=== PATIENT | male | born 1960 | race Caucasian/White ===

== ENCOUNTER 2016-11-29 14:47 | Emergency (ER) | payer BC ==
[2016-11-29 16:29] LABS: Basophils % (Auto) 0.6 % (0.0-1.8); Eosinophils % (Auto) 1.7 % (0.0-4.3); Hematocrit 42.6 % (35.5-45.6); Hemoglobin 14.4 gm/dl (11.8-15.2); Mean Corpuscular HGB Conc 34 % (32-34); Mean Corpuscular Hemoglobin 30 pg (28-32); Mean Corpuscular Volume 88 fl (84-94); Platelet Count 139 K/mm3 (140-440); Red Blood Count 4.85 M/mm3 (3.65-5.03); Red Cell Distribution Width 13.7 % (13.2-15.2); White Blood Count 7.2 K/mm3 (4.5-11.0)
[2016-11-29 16:44] LABS: Alanine Aminotransferase 25 units/L (7-56); Albumin 4.3 g/dL (3.9-5); Albumin/Globulin Ratio 1.5 %; Alkaline Phosphatase 87 units/L (35-129); Anion Gap 20 mmol/L; Bilirubin,Total 0.2 mg/dL (0.1-1.2); Blood Urea Nitrogen 14 mg/dL (9-20); Calcium 9.3 mg/dL (8.4-10.2); Carbon Dioxide 25 mmol/L (22-30); Chloride 97.7 mmol/L (98-107); Glucose 143 mg/dL (75-100); Lipase 46 units/L (13-60); Potassium 4.2 mmol/L (3.6-5.0); Sodium 138 mmol/L (137-145); Total Protein 7.1 g/dL (6.3-8.2)
[2016-11-29 16:52] LABS: Bilirubin,Urine NEG (Negative); Blood,Urine NEG (Negative); Ketones,Urine NEG (Negative); Leukocyte Esterase,Urine NEG (Negative); Nitrite,Urine NEG (Negative); Protein,Urine <15 mg/dL mg/dL (Negative); Urobilinogen,Urine < 2.0 mg/dL (<2.0); WBC,Urine < 1.0 /HPF (0.0-6.0)
--- NOTE | 2016-11-30 01:08 | Emergency Department Report ---
ED Abdominal Pain HPI - General Chief Complaint: Abdominal Pain Stated Complaint: ABD PAIN Time Seen by Provider: 11/30/16 00:51 Source: patient Mode of arrival: Ambulatory Limitations: No Limitations - History of Present Illness Initial Comments: Patient reports recent diagnosis of genital herpes. He was placed on acyclovir 800 mg one tablet per day 10 days. He indicates for the past 5 days he's felt increased jitteriness. He also reports some lightheadedness and feels others funny sensation in the tip of his tongue. He also reports some intermittent abdominal pains that are somewhat migratory. He denies any nausea vomiting or diarrhea. He denies any fever. He reports feeling new change really is that he acyclovir. MD Complaint: abdominal pain -: Gradual, days(s) (5) Location: RUQ, LLQ Radiation: none Severity: mild Quality: dull Consistency: intermittent Improves With: nothing Worsens With: other (lying down) Context: recent antibiotic use Associated Symptoms: other (weakness, fatigue, paresthesias ) - Related Data Home Medications Medication Instructions Recorded Confirmed Last Taken Insulin Aspart Protam & Aspart 25 unit SQ BID 03/21/16 03/21/16 Unknown [NovoLOG Mix 70-30 Flexpen] Rosuvastatin (Nf) [Crestor] 20 mg PO QHS 03/21/16 03/21/16 Unknown Allergies Allergy/AdvReac Type Severity Reaction Status Date / Time No Known Allergies Allergy Verified 11/29/16 15:47 ED Review of Systems ROS: Stated complaint: ABD PAIN Other details as noted in HPI Constitutional: weakness. denies: chills, fever Eyes: denies: eye pain, eye discharge, vision change ENT: denies: ear pain, throat pain Respiratory: denies: cough, shortness of breath, wheezing Cardiovascular: denies: chest pain, palpitations Endocrine: no symptoms reported Gastrointestinal: abdominal pain. denies: nausea, diarrhea Genitourinary: denies: urgency, dysuria Musculoskeletal: denies: back pain, joint swelling, arthralgia Skin: denies: rash, lesions Neurological: paresthesias. denies: headache, weakness Psychiatric: denies: anxiety, depression Hematological/Lymphatic: denies: easy bleeding, easy bruising ED Past Medical Hx - Past Medical History Hx Hypertension: Yes (x 20 years) Hx Congestive Heart Failure: No Hx Diabetes: Yes Hx Asthma: No Hx COPD: No Additional medical history: HERPES. HIGH CHOLESTEROL - Surgical History Past Surgical History?: No - Social History Smoking Status: Never Smoker - Medications Home Medications: Home Medications Medication Instructions Recorded Confirmed Last Taken Type Insulin Aspart Protam & Aspart 25 unit SQ BID 03/21/16 03/21/16 Unknown History [NovoLOG Mix 70-30 Flexpen] Rosuvastatin (Nf) [Crestor] 20 mg PO QHS 03/21/16 03/21/16 Unknown History ED Physical Exam - General Limitations: No Limitations General appearance: alert, in no apparent distress - Head Head exam: Present: atraumatic, normocephalic - Eye Eye exam: Present: normal appearance - ENT ENT exam: Present: normal orophraynx, mucous membranes moist - Neck Neck exam: Present: normal inspection. Absent: tenderness, lymphadenopathy - Respiratory Respiratory exam: Present: normal lung sounds bilaterally. Absent: respiratory distress, rhonchi - Cardiovascular Cardiovascular Exam: Present: regular rate, normal rhythm. Absent: systolic murmur, diastolic murmur, rubs, gallop - GI/Abdominal GI/Abdominal exam: Present: soft, normal bowel sounds. Absent: distended, tenderness - Rectal Rectal exam: Present: deferred - External exam: Present: other (herpetic lesions on shaft and glans of penis ) - Extremities Exam Extremities exam: Present: normal inspection - Back Exam Back exam: Present: normal inspection - Neurological Exam Neurological exam: Present: alert, oriented X3 - Psychiatric Psychiatric exam: Present: normal affect, normal mood - Skin Skin exam: Present: warm, dry, intact, normal color. Absent: rash ED Course Vital Signs 11/29/16 11/30/16 11/30/16 15:43 00:45 01:46 Temperature 98.0 F 98.7 F Pulse Rate 76 89 Respiratory 18 14 14 Rate Blood Pressure 136/89 Blood Pressure 145/89 [Left] O2 Sat by Pulse 97 99 Oximetry - Reevaluation(s) Reevaluation #1: 11/30/16 02:18 The patient is intact neurologically for me here I did review on [facility] whether acyclovir could Cause some of his symptoms. It seems unlikely. His doses somewhat on his well for herpes simplex. I did encourage him to take 2 tablets daily for the next 3 days. I cannot rule out these medications could cause his symptoms. I do feel it is worth finishing the prescription though. The symptoms in general seem fairly mild. I did write him off work for the next couple days so he can convalesce try to get through this. He is otherwise stable here. Do not see anything cardiac related to this. His labs are unremarkable. I feel he is safe for home. ED Medical Decision Making - Lab Data Result diagrams: 11/29/16 16:12 11/29/16 16:12 Critical care attestation.: If time is entered above; I have spent that time in minutes in the direct care of this critically ill patient, excluding procedure time. ED Disposition Clinical Impression: Adverse drug reaction Genital herpes simplex Qualifiers: Herpes simplex infection site: penis Qualified Code(s): A60.01 - Herpesviral infection of penis Disposition: DISCHARGED TO HOME OR SELFCARE Is pt being admited?: No Does the pt Need Aspirin: No Condition: Stable Instructions: Genital Herpes Simplex (ED) Additional Instructions: Continue with the acyclovir. Take one more tonight. Take morning and night for the next 2 days. Eat a bland diet. Referrals: PRIMARY CARE, [Primary Care Provider] - 3-5 Days Forms: Work/School Release Form(ED) Time of Disposition: 01:08
[2016-11-30 01:33] VITALS: BP 145/89
== END 2016-11-30 01:30 | disposition home or self-care (01) ==
LOC: ED 14:47
DX: T50.905A Adverse effect of unspecified drugs, medicaments and biological substances, initial encounter (principal); A60.01 Herpesviral infection of penis; R53.83 Other fatigue; I10 Essential (primary) hypertension; E11.9 Type 2 diabetes mellitus without complications; E78.00 Pure hypercholesterolemia, unspecified; Z79.4 Long term (current) use of insulin; Y92.9 Unspecified place or not applicable
CPT/HCPCS: 36415; 80053; 81001; 83690; 84484; 85025; 93005; 93010; 99284

== ENCOUNTER 2019-07-17 00:14 | Emergency (ER) | payer SELFPAY ==
[2019-07-17] MEDS ORDERED: ASPIRIN PO ONE (00:49)
[2019-07-17 01:03] LABS: Basophils # (Auto) 0.1 K/mm3 (0.0-0.1); Basophils % (Auto) 1.4 % (0.0-1.8); Eosinophils # (Auto) 0.2 K/mm3 (0.0-0.4); Eosinophils % (Auto) 4.8 % (0.0-4.3); Hematocrit 42.4 % (35.5-45.6); Hemoglobin 14.4 gm/dl (11.8-15.2); Lymphocytes # (Auto) 1.7 K/mm3 (1.2-5.4); Lymphocytes % (Auto) 34.6 % (13.4-35.0); Mean Corpuscular HGB Conc 34 % (32-34); Mean Corpuscular Volume 88 fl (84-94); Monocytes # (Auto) 0.4 K/mm3 (0.0-0.8); Monocytes % (Auto) 8.1 % (0.0-7.3); Platelet Count 150 K/mm3 (140-440)
--- NOTE | 2019-07-17 01:15 | XRay Report ---
CHEST 1 VIEW INDICATION / CLINICAL INFORMATION: Chest Pain. COMPARISON: None available. FINDINGS: SUPPORT DEVICES: None. HEART / MEDIASTINUM: No significant abnormality. LUNGS / PLEURA: No significant pulmonary or pleural abnormality. No pneumothorax. ADDITIONAL FINDINGS: No significant additional findings. IMPRESSION: 1. No acute findings. Signer Name: Brennen Mary MD Signed: 07/17/2019 1:10 AM Workstation Name: [id number]
[2019-07-17 01:18] LABS: BUN/Creatinine Ratio 19; Blood Urea Nitrogen 13 mg/dL (9-20); Calcium 9.1 mg/dL (8.4-10.2); Hemolysis Index 8
[2019-07-17] MEDS ORDERED: CARAFATE PO ONE (01:38)
[2019-07-17] MEDS ORDERED: PEPCID PO ONE (01:38)
[2019-07-17] MEDS ORDERED: TYLENOL PO ONE (01:38)
[2019-07-17] MEDS ORDERED: NACL 0.9% 1000 ML 1,000 ML IV ONE (01:39)
--- NOTE | 2019-07-17 01:40 | Emergency Department Report ---
ED Chest Pain HPI - General Chief Complaint: Chest Pain Stated Complaint: WEAKNESS/CHEST TIGHTING Time Seen by Provider: 07/17/19 01:30 Source: patient, RN notes reviewed, old records reviewed Mode of arrival: Ambulatory Limitations: No Limitations - History of Present Illness Initial Comments: This is a pleasant 58-year-old gentleman who is not known to this provider previously. He has a history of gastritis, hypertension and high cholesterol. Patient was admitted to this hospital in 2016 for chest pain, and had a nuclear cardiac stress test which was negative for ischemic findings. The patient presents to the ER with a complaint of diffuse abdominal pain, cramping. This has been going on for a few days to a few weeks, and was initially epigastric and radiated down to the bilateral lower quadrants. Then, he says, that at 11:00 yesterday evening, he developed epigastric pain and bilateral chest pain. This pain does not radiate anywhere. There is no vomiting or diaphoresis. There is no shortness of breath. He endorses no DVT or pulmonary embolism risk factors. He endorses abdominal cramping and chills. He denies urinary symptoms. MD Complaint: chest pain, other -: Gradual, hour(s), days(s) Onset: during rest Pain Location: substernal, left chest, right chest Severity: mild Quality: aching Consistency: intermittent Improves With: nothing Worsens With: nothing Aspirin use within the Past 7 Days: (0) No - Related Data On Oral Contraceptives: No Home Medications Medication Instructions Recorded Confirmed Last Taken Insulin Aspart Protam & Aspart 25 unit SQ BID 03/21/16 03/21/16 Unknown [NovoLOG Mix 70-30 Flexpen] Rosuvastatin (Nf) [Crestor] 20 mg PO QHS 03/21/16 03/21/16 Unknown Allergies Allergy/AdvReac Type Severity Reaction Status Date / Time No Known Allergies Allergy Verified 11/29/16 15:47 Heart Score - HEART Score History: Slightly suspicious EKG: Normal Age: 45-65 Risk factors: 1-2 risk factors Troponin: < normal limit HEART Score: 2 - Critical Actions Critical Actions: 0-3 pts:0.9-1.7%risk of adverse cardiac event.Candidate for discharge ED Review of Systems ROS: Stated complaint: WEAKNESS/CHEST TIGHTING Other details as noted in HPI Constitutional: chills. denies: fever Eyes: denies: eye discharge ENT: denies: congestion Respiratory: denies: shortness of breath Cardiovascular: chest pain Gastrointestinal: abdominal pain. denies: nausea, vomiting, diarrhea Genitourinary: denies: dysuria Musculoskeletal: myalgia Skin: denies: lesions Neurological: weakness Hematological/Lymphatic: denies: easy bleeding ED Past Medical Hx - Past Medical History Previous Medical History?: Yes Hx Hypertension: Yes (x 20 years) Hx Congestive Heart Failure: No Hx Diabetes: Yes Hx Asthma: No Hx COPD: No Additional medical history: HERPES, GASTRITIS. HIGH CHOLESTEROL - Surgical History Past Surgical History?: No - Social History Smoking Status: Never Smoker Substance Use Type: None - Medications Home Medications: Home Medications Medication Instructions Recorded Confirmed Last Taken Type Insulin Aspart Protam & Aspart 25 unit SQ BID 03/21/16 03/21/16 Unknown History [NovoLOG Mix 70-30 Flexpen] Rosuvastatin (Nf) [Crestor] 20 mg PO QHS 03/21/16 03/21/16 Unknown History ED Physical Exam - General Limitations: No Limitations General appearance: alert, in no apparent distress - Head Head exam: Present: atraumatic, normocephalic - Eye Eye exam: Present: normal appearance, EOMI. Absent: nystagmus - ENT ENT exam: Present: normal exam, normal orophraynx, mucous membranes moist, normal external ear exam - Neck Neck exam: Present: normal inspection, full ROM. Absent: tenderness, menin gismus - Respiratory Respiratory exam: Present: normal lung sounds bilaterally. Absent: respiratory distress - Cardiovascular Cardiovascular Exam: Present: regular rate, normal rhythm, normal heart sounds. Absent: bradycardia, tachycardia, irregular rhythm, systolic murmur, diastolic murmur, rubs, gallop - GI/Abdominal GI/Abdominal exam: Present: soft. Absent: distended, tenderness, guarding, rebound, rigid, pulsatile mass - Rectal Rectal exam: Present: deferred - Extremities Exam Extremities exam: Present: normal inspection, full ROM, other (2+ pulses noted in the bilateral upper, lower extremities. There is no long bone tenderness. Musculoskeletal compartments are soft. The pelvis is stable.). Absent: pedal edema, joint swelling, calf tenderness - Back Exam Back exam: Present: normal inspection, full ROM. Absent: tenderness, CVA tenderness (R), CVA tenderness (L), paraspinal tenderness, vertebral tenderness - Neurological Exam Neurological exam: Present: alert, normal gait, other (there is no facial droop. The tongue is midline. Extraocular movements are intact bilaterally. Patient speaking in full complete sentences. Shoulder shrug is intact bilaterally. Hearing is grossly intact bilaterally. Visual acuity intact to finger counting and color perception at a close distance. 5/5 strength 4 extremities. Sensation intact to light touch in 4 extremities.). Absent: motor sensory deficit - Psychiatric Psychiatric exam: Present: anxious - Skin Skin exam: Present: warm, dry, intact, normal color. Absent: rash ED Course Vital Signs 07/17/19 07/17/19 07/17/19 01:46 01:47 01:49 Temperature 98.5 F Pulse Rate 60 60 Respiratory 15 15 Rate Blood Pressure 141/78 [Right] O2 Sat by Pulse 99 99 Oximetry 07/17/19 07/17/19 03:59 05:02 Temperature Pulse Rate 81 60 Respiratory 16 16 Rate Blood Pressure 134/77 119/65 [Right] O2 Sat by Pulse 98 97 Oximetry - Reevaluation(s) Reevaluation #1: 07/17/19 05:07 Multiple reassessments made. Patient appears quite comfortable. Troponin negative 3. EKG unchanged 2. Patient resting comfortably, and in no acute distress. CT scan chest negative for acute disease. CT scan abdomen pelvis negative for acute disease. Patient at low risk for major adverse cardiac event. As for this institutions protocols, his facesheet contact information has been sent out via fax to our local cardiology practice, and he will be instr ucted to closely follow-up as an outpatient. Patient is low risk for major adverse cardiac event as per heart score. GABE score - Gabe Score Age > 65: (0) No Aspirin use within the Past 7 Days: (0) No 3 or more CAD Risk Factors: (0) No 2 or more Angina events in past 24 hrs: (0) No Known CAD with more than 50% Stenosis: (0) No Elevated Cardiac Markers: (0) No ST Deviation Greater than 0.5mm: (0) No GABE Score: 0 ED Medical Decision Making - Lab Data Result diagrams: 07/17/19 00:51 07/17/19 00:51 Vital Signs 07/17/19 07/17/19 07/17/19 01:46 01:47 01:49 Temperature 98.5 F Pulse Rate 60 60 Respiratory 15 15 Rate Blood Pressure 141/78 [Right] O2 Sat by Pulse 99 99 Oximetry Lab Results 07/17/19 07/17/19 Range/Units 00:51 00:51 WBC 5.0 (4.5-11.0) K/mm3 RBC 4.80 (3.65-5.03) M/mm3 Hgb 14.4 (11.8-15.2) gm/dl Hct 42.4 (35.5-45.6) % MCV 88 (84-94) fl MCH 30 (28-32) pg MCHC 34 (32-34) % RDW 14.0 (13.2-15.2) % Plt Count 150 (140-440) K/mm3 Lymph % (Auto) 34.6 (13.4-35.0) % [place] % (Auto) 8.1 H (0.0-7.3) % Eos % (Auto) 4.8 H (0.0-4.3) % Baso % (Auto) 1.4 (0.0-1.8) % Lymph # 1.7 (1.2-5.4) K/mm3 [place] # 0.4 (0.0-0.8) K/mm3 Eos # 0.2 (0.0-0.4) K/mm3 Baso # 0.1 (0.0-0.1) K/mm3 Seg Neutrophils % 51.1 (40.0-70.0) % Seg Neutrophils # 2.5 (1.8-7.7) K/mm3 Sodium 140 (137-145) mmol/L Potassium 3.5 L (3.6-5.0) mmol/L Chloride 101.4 (98-107) mmol/L Carbon Dioxide 26 (22-30) mmol/L Anion Gap 16 mmol/L BUN 13 (9-20) mg/dL Creatinine 0.7 L (0.8-1.5) mg/dL Estimated GFR > 60 ml/min BUN/Creatinine Ratio 19 % Glucose 174 H (75-100) mg/dL Calcium 9.1 (8.4-10.2) mg/dL Troponin T < 0.010 (0.00-0.029) ng/mL - EKG Data -: EKG Interpreted by De EKG shows normal: sinus rhythm, axis, intervals, QRS complexes, ST-T waves Rate: normal - EKG Data When compared to previous EKG there are: no significant change Interpretation: no acute changes, normal EKG 07/17/19 01:58 EKG #1 shows a normal sinus rhythm, 61 beats for minute, normal axis, normal intervals, unremarkable EKG, not consistent with ST elevation myocardial infarction. EKG #2 was unchanged from prior. Both EKGs appear to be unchanged from prior EKGs from 2017 - Radiology Data Radiology results: pending, report reviewed, image reviewed X-ray of the chest is negative for acute disease - Medical Decision Making Differential diagnosis, including not limited to: Constipation, GERD, gastritis, reflux, hiatal hernia, acute coronary syndrome, pneumonia, intra-abdominal infection, renal infection, pulmonary embolism Assessment and plan: 58-year-old gentleman who endorses abdominal pain, chills, and chest pain. The patient is afebrile with reassuring vital signs. His abdomen is soft and benign. He does not have a fever and he does not have a leukocytosis. Doubt acute surgical process in the abdomen. EKG unchanged 2. Troponin negative 1. No pulmonary embolism or DVT risk factors, low risk by well's criteria. Low risk by heart score, for major adverse cardiac event. Patient has had an unremarkable nuclear stress at this hospital in the past. Doubt acute disease at this time, however, we will treat his symptoms, obtain urinalysis, repeat troponin, additional laboratory studies and d-dimer, and depending on d-dimer, obtain CT scan abdomen pelvis, plus minus chest. Critical care attestation.: If time is entered above; I have spent that time in minutes in the direct care of this critically ill patient, excluding procedure time. ED Disposition Clinical Impression: History of chest pain, History of abdominal pain Disposition: -01 TO HOME OR SELFCARE Is pt being admited?: No Does the pt Need Aspirin: No Condition: Stable Additional Instructions: Avoid consumption of Motrin, ibuprofen, Naprosyn, Aleve. Avoid consumption of heavy and spicy foods. Limits alcohol consumption. Follow-up with a cardio logist within the next 3-5 days. Patient may take [id number] Tylenol, 650 mg, by mouth, every 4-6 hours, and [id number] Pepcid, 20 mg, twice daily. Return to emergency room right away with new, worsened or different symptoms, or symptoms not present on the initial emergency room evaluation. Do not take metformin medication for the next 2 days, if patient takes this medication. Referrals: [facility] [Provider Group] - 3-5 Days [facility] - [facility] Days
[2019-07-17 02:41] LABS: Alanine Aminotransferase 16 units/L (7-56); Albumin 3.9 g/dL (3.9-5)
[2019-07-17 02:47] LABS: Bilirubin,Urine NEG (Negative); Blood,Urine NEG (Negative); Color,Urine Yellow (Yellow); Mucus,Urine FEW /HPF; Urobilinogen,Urine < 2.0 mg/dL (<2.0); WBC,Urine < 1.0 /HPF (0.0-6.0)
[2019-07-17 03:26] LABS: Bilirubin,Direct < 0.2 mg/dL (0-0.2)
--- NOTE | 2019-07-17 04:46 | Cat Scan Report ---
CT angio chest INDICATION / CLINICAL INFORMATION: cp chills + d dimer. TECHNIQUE: Precontrast bolus timing images were obtained followed by postcontrast axial and reformatted images. 3-plane MIP reconstructions were performed at an independent workstation by the technologist. All CT scans at this location are performed using CT dose reduction for ALARA by means of automated exposure control. COMPARISON: None available. FINDINGS: Pulmonary arterial enhancement is normal. No evidence of pulmonary embolus. No mediastinal abnormality. No acute lung disease or pleural effusion. Degenerative changes are seen in the thoracic spine. IMPRESSION: 1. No evidence of pulmonary embolus or acute disease. Signer Name: Brennen Mary MD Signed: 07/17/2019 4:42 AM Workstation Name: [id number]
--- NOTE | 2019-07-17 04:49 | Cat Scan Report ---
CT abdomen pelvis w con INDICATION / CLINICAL INFORMATION: abd pain chills rad to chest. TECHNIQUE: All CT scans at this location are performed using CT dose reduction for ALARA by means of automated e xposure control. COMPARISON: None available. FINDINGS: The gallbladder, liver, spleen, pancreas and kidneys are normal. No small bowel distention. Adrenal glands are normal. No mesenteric or retroperitoneal adenopathy. Pelvis: The appendix is normal. No acute colon abnormalities. Free fluid collections are seen pelvis No skeletal abnormality IMPRESSION: 1. No acute abdominal or pelvic abnormality. Signer Name: Brennen Mary MD Signed: 07/17/2019 4:45 AM Workstation Name: [id number]
[2019-07-17 05:03] VITALS: BP 119/65
== END 2019-07-17 05:22 | disposition home or self-care (01) ==
LOC: ED 00:14
DX: R07.2 Precordial pain (principal); R10.13 Epigastric pain; I10 Essential (primary) hypertension; E11.9 Type 2 diabetes mellitus without complications; E78.00 Pure hypercholesterolemia, unspecified; Z79.4 Long term (current) use of insulin; Z79.899 Other long term (current) drug therapy
CPT/HCPCS: 36415; 71045; 71275; 74177; 80048; 80076; 81001; 82550; 83690; 83735; 84484; 85025; 85379; 93005; 93010; 99284; J7030; Q9967

== ENCOUNTER 2019-10-07 11:52 | Outpatient (CLI) | payer OTHER ==
[2019-10-07 12:24] LABS: Bilirubin,Urine NEG (Negative); Blood,Urine NEG (Negative); Color,Urine Yellow (Yellow); Mucus,Urine FEW /HPF; Urobilinogen,Urine < 2.0 mg/dL (<2.0); WBC,Urine < 1.0 /HPF (0.0-6.0)
[2019-10-07 12:28] LABS: Basophils # (Auto) 0.1 K/mm3 (0.0-0.1); Eosinophils # (Auto) 0.1 K/mm3 (0.0-0.4); Eosinophils % (Auto) 2.1 % (0.0-4.3); Hematocrit 43.5 % (35.5-45.6); Hemoglobin 14.8 gm/dl (11.8-15.2); Lymphocytes # (Auto) 1.3 K/mm3 (1.2-5.4); Lymphocytes % (Auto) 23.4 % (13.4-35.0); Mean Corpuscular HGB Conc 34 % (32-34); Mean Corpuscular Volume 88 fl (84-94); Monocytes # (Auto) 0.3 K/mm3 (0.0-0.8); Monocytes % (Auto) 5.8 % (0.0-7.3); Platelet Count 146 K/mm3 (140-440); Red Blood Count 4.96 M/mm3 (3.65-5.03); Red Cell Distribution Width 13.5 % (13.2-15.2)
[2019-10-07 12:40] LABS: Creatinine,Urine 151.3 mg/dL (0.1-20.0); Microalbumin/Creatinine Ratio 122.2 ug/mg
[2019-10-07 12:55] LABS: Alanine Aminotransferase 14 units/L (7-56); Albumin 4.1 g/dL (3.9-5); BUN/Creatinine Ratio 18; Blood Urea Nitrogen 14 mg/dL (9-20); Calcium 9.3 mg/dL (8.4-10.2); Chol/HDL Ratio 7.02 %; HDL Cholesterol 37 mg/dL (40-59); Hemolysis Index 8; LDL Cholesterol,Direct 210 mg/dL (50-130)
--- NOTE | 2019-10-07 13:08 | XRay Report ---
BILATERAL HIPS AND PELVIS, 3 VIEWS INDICATION: PAIN IN RT HIP. COMPARISON: No relevant prior imaging study available. FINDINGS: There is advanced osteoarthrosis at the right hip with severe joint space narrowing, subchondral scle rosis, and osteophyte formation. Moderate osteoarthrosis is noted at the left hip. No acute, displace d fracture or dislocation. IMPRESSION: 1. Advanced right hip osteoarthrosis. Signer Name: Abdi Romero MD Signed: 10/07/2019 1:03 PM Workstation Name: [email or web address]
[2019-10-10 14:16] LABS: Vitamin D, 25-OH, D2 <4 ng/mL
== END 2019-10-07 11:53 | disposition home or self-care (01) ==
LOC: XRAY 11:52
PROVIDERS: ATTEND Internal Medicine
DX: M16.0 Bilateral primary osteoarthritis of hip (principal); M25.551 Pain in right hip
CPT/HCPCS: 36415; 73521; 80053; 80061; 81001; 82043; 82306; 82607; 83036; 84153; 84443; 85025

== ENCOUNTER 2019-10-28 12:20 | Outpatient (CLI) | payer OTHER ==
--- NOTE | 2019-10-28 13:27 | Ultrasound Report ---
ULTRASOUND RENAL INDICATION / CLINICAL INFORMATION: UNSPECIFIED ABDOMINAL PAIN. COMPARISON: None available. FINDINGS: RIGHT KIDNEY: Length = 10.5 cm. [normal > 9 cm] - Parenchymal Thickness = 2.1 cm. [normal > 1.5 cm] - Echogenicity: Normal. - Hydronephrosis: None. - Cyst or mass: No significant abnormality. - Stones: None seen. LEFT KIDNEY: Length = 10.1 cm. [normal > 9 cm] - Parenchymal Thickness = 2 cm. [normal > 1.5 cm] - Echogenicity: Normal. - Hydronephrosis: None. - Cyst or mass: No significant abnormality. - Stones: None seen. URINARY BLADDER: No significant abnormality. FREE FLUID: None. ADDITIONAL FINDINGS: Cholelithiasis is noted. IMPRESSION: Normal appearance of the kidneys without acute findings or findings to explain patient's reported abd ominal pain Cholelithiasis is partially visualized. If there is right upper quadrant abdominal pain or clinical c oncern for cholecystitis, a right upper quadrant ultrasound may be considered for further evaluation. Signer Name: Jaspal oFx MD Signed: 10/28/2019 1:23 PM Workstation Name: [id number]
== END 2019-10-28 12:21 | disposition home or self-care (01) ==
LOC: US 12:20
PROVIDERS: ATTEND Internal Medicine
DX: K80.20 Calculus of gallbladder without cholecystitis without obstruction (principal)
CPT/HCPCS: 76770

== ENCOUNTER 2019-11-19 21:37 | Observation (INO) | payer OTHER ==
--- NOTE | 2019-11-19 22:23 | Emergency Department Report ---
{null, Blank Doc - Documentation Documentation: 59-year-old male that presents with chest pain with left sided arm pain. Stated has some SOB. This initial assessment/diagnostic orders/clinical plan/treatment(s) is/are subject to change based on patient's health status, clinical progression and re- assessment by fellow clinical providers in the ED. Further treatment and workup at subsequent clinical providers discretion. Patient/guardians urged not to elope from the ED as their condition may be serious if not clinically assessed and managed. Initial orders include: 1- Patient sent to [facility] for further evaluation and treatment 2- cardiac protocol }
--- NOTE | 2019-11-19 22:50 | XRay Report ---
{null, CHEST 2 VIEWS INDICATION / CLINICAL INFORMATION: Chest Pain. COMPARISON: None available. FINDINGS: SUPPORT DEVICES: None. HEART / MEDIASTINUM: No significant abnormality. LUNGS / PLEURA: No significant pulmonary or pleural abnormality. .No pneumothorax. ADDITIONAL FINDINGS: No significant additional findings. IMPRESSION: 1. No acute findings. Signer Name: Zander Chaparro MD Signed: 11/19/2019 10:46 PM Workstation Name: [email or web address] }
[2019-11-19 23:31] LABS: Basophils % (Auto) 0.5 % (0.0-1.8); Eosinophils # (Auto) 0.2 K/mm3 (0.0-0.4); Eosinophils % (Auto) 1.7 % (0.0-4.3); Hematocrit 43.4 % (35.5-45.6); Hemoglobin 15.1 gm/dl (11.8-15.2); Lymphocytes # (Auto) 1.5 K/mm3 (1.2-5.4); Lymphocytes % (Auto) 16.4 % (13.4-35.0); Mean Corpuscular HGB Conc 35 % (32-34); Mean Corpuscular Volume 87 fl (84-94); Monocytes # (Auto) 0.6 K/mm3 (0.0-0.8); Monocytes % (Auto) 7.1 % (0.0-7.3); Platelet Count 149 K/mm3 (140-440); Red Blood Count 4.98 M/mm3 (3.65-5.03); Red Cell Distribution Width 13.8 % (13.2-15.2)
[2019-11-19 23:45] LABS: INR 0.96 (0.87-1.13); Partial Thromboplastin Time 25.8 Sec. (24.2-36.6)
[2019-11-19 23:58] LABS: Alanine Aminotransferase 17 units/L (7-56); Albumin 4.5 g/dL (3.9-5); BUN/Creatinine Ratio 21; Blood Urea Nitrogen 17 mg/dL (9-20); Hemolysis Index 5
[2019-11-20] MEDS ORDERED: NITROGLYCERIN 2% OINT 1 GM TP ONE (02:15)
[2019-11-20] MEDS ORDERED: ALUM-MAG HYDROXIDE-SIMETHICONE 200-200-20MG/5ML ORAL LIQD 30 ML PO ONE (02:15)
[2019-11-20] MEDS ORDERED: FAMOTIDINE 20 MG/2 ML INJ IV ONE (02:15)
[2019-11-20] MEDS ORDERED: LIDOCAINE VISCOUS 2% 15 ML ORAL LIQD PO ONE (02:15)
[2019-11-20] MEDS ORDERED: ASPIRIN 325 MG TAB PO ONE (02:15)
--- NOTE | 2019-11-20 02:21 | Emergency Department Report ---
{null, HPI - General Chief Complaint: Chest Pain Time Seen by Provider: 11/19/19 22:22 - HPI HPI: Room 24 The patient is a 59-year-old male present with a chief complaint of chest pain. Patient states for the past 2 to 3 days she has had admitted substernal chest pain described as sharp and burning in nature. The patient states this evening he developed numbness in his left upper extremity in addition to diaphoresis and nausea with his chest pain. Patient denies shortness of breath or vomiting. Patient states he also noticed his blood pressure was elevated and this prompted him to come to the ED. Patient states he had a stress test 3 years ago but has never had a cardiac catheterization. Location: [See above] Duration: [See above] Quality: [See above] Severity: [See above] Timing: [See above] Context: [See above] Modifying factors: [See above] Associated signs and symptoms: [see above] Mode of Transportation: [the pt is not driving] ED Past Medical Hx - Past Medical History Previous Medical History?: Yes Hx Hypertension: Yes (x 20 years) Hx Diabetes: Yes Additional medical history: HERPES, GASTRITIS. HIGH CHOLESTEROL - Surgical History Past Surgical History?: No - Family History Family history: no significant - Social History Smoking Status: Former Smoker (None x10 years) Substance Use Type: None (Denies illicit drug use), Alcohol (Rarely) - Medications Home Medications: Home Medications Medication Instructions Recorded Confirmed Last Taken Type Insulin Aspart Protam & Aspart 25 unit SQ BID 03/21/16 03/21/16 Unknown History [NovoLOG Mix 70-30 Flexpen] Rosuvastatin (Nf) [Crestor] 20 mg PO QHS 03/21/16 03/21/16 Unknown History ED Review of Systems ROS: Stated complaint: CHEST PAIN/ARM PAIN Other details as noted in HPI Constitutional: diaphoresis Eyes: denies: eye pain ENT: denies: throat pain Respiratory: denies: shortness of breath Cardiovascular: chest pain Endocrine: no symptoms reported Gastrointestinal: abdominal pain, nausea. denies: vomiting Genitourinary: denies: dysuria Musculoskeletal: denies: back pain Neurological: paresthesias. denies: headache Physical Exam - Physical Exam Physical Exam: GENERAL: The patient is well-developed well-nourished male lying on stretcher not appearing to be in acute distress. [] HEENT: Normocephalic. Atraumatic. Extraocular motions are intact. Patient has moist mucous membranes. NECK: Supple. Trachea midline CHEST/LUNGS: Clear to auscultation. There is no respiratory distress noted. HEART/CARDIOVASCULAR: Regular. There is no tachycardia. There is no gallop rub or murmur. ABDOMEN: Abdomen is soft, nontender. Patient has normal bowel sounds. There is no abdominal distention. SKIN: There is no rash. There is no edema. There is no diaphoresis. NEURO: The patient is awake, alert, and oriented. The patient is cooperative. The patient has normal speech MUSCULOSKELETAL: There is no evidence of acute injury. ED Medical Decision Making - Lab Data Result diagrams: 11/19/19 23:00 11/19/19 23:00 Laboratory Tests 11/19/19 11/19/19 11/19/19 23:00 23:00 23:00 WBC 8.9 RBC 4.98 Hgb 15.1 Hct 43.4 MCV 87 MCH 30 MCHC 35 H RDW 13.8 Plt Count 149 Lymph % (Auto) 16.4 [place] % (Auto) 7.1 Eos % (Auto) 1.7 Baso % (Auto) 0.5 Lymph # 1.5 [place] # 0.6 Eos # 0.2 Baso # 0.0 Seg Neutrophils % 74.3 H Seg Neutrophils # 6.6 PT 12.9 INR 0.96 APTT 25.8 Sodium 143 Potassium 4.3 Chloride 100.6 Carbon Dioxide 28 Anion Gap 19 BUN 17 Creatinine 0.8 Estimated GFR > 60 BUN/Creatinine Ratio 21 Glucose 105 H Calcium 10.0 Total Bilirubin 0.30 AST 16 ALT 17 Alkaline Phosphatase 94 Troponin T < 0.010 Total Protein 7.1 Albumin 4.5 Albumin/Globulin Ratio 1.7 11/20/19 01:20 WBC RBC Hgb Hct MCV MCH MCHC RDW Plt Count Lymph % (Auto) [place] % (Auto) Eos % (Auto) Baso % (Auto) Lymph # [place] # Eos # Baso # Seg Neutrophils % Seg Neutrophils # PT INR APTT Sodium Potassium Chloride Carbon Dioxide Anion Gap BUN Creatinine Estimated GFR BUN/Creatinine Ratio Glucose Calcium Total Bilirubin AST ALT Alkaline Phosphatase Troponin T < 0.010 Total Protein Albumin Albumin/Globulin Ratio - EKG Data -: EKG Interpreted by Dc EKG shows normal: sinus rhythm Rate: normal - EKG Data When compared to previous EKG there are: previous EKG unavailable Interpretation: other (No ischemic changes seen) - Radiology Data Radiology results: report reviewed (Chest x-ray), image reviewed (Chest x-ray) interpreted by me: Chest x-ray-no focal infiltrates, no pneumothorax [facility] [address] [place] [address] XRay Report Signed Patient: EDISON HERNANDEZ MR#: [id number] : 1960 Acct:[id number] Age/Sex: 59 / M ADM Date: 11/19/19 Loc: ED Attending Dr: Ordering Physician: NEVIN RAMIREZ NP Date of Service: 11/19/19 Procedure(s): XR chest routine 2V Accession Number(s): [id number] cc: NEVIN RAMIREZ NP Fluoro Time In Minutes: CHEST 2 VIEWS INDICATION / CLINICAL I NFORMATION: Chest Pain. COMPARISON: None available. FINDINGS: SUPPORT DEVICES: None. HEART / MEDIASTINUM: No significant abnormality. LUNGS / PLEURA: No significant pulmonary or pleural abnormality. .No pneumothorax. ADDITIONAL FINDINGS: No significant additional findings. IMPRESSION: 1. No acute findings. Signer Name: Zander Chaparro MD Signed: 11/19/2019 10:46 PM Workstation Name: [id number] Transcribed By: SS Dictated By: Zander Chaparro MD Electronically Authenticated By: Zander Chaparro MD Signed Date/Time: 11/19/192245 DD/ 41 TD/TT: - Differential Diagnosis ACS, pericarditis, GERD Critical care attestation.: If time is entered above; I have spent that time in minutes in the direct care of this critically ill patient, excluding procedure time. ED Disposition Clinical Impression: Chest pain Disposition: -09 OP ADMIT IP TO THIS HOSP Is pt being admited?: Yes Does the pt Need Aspirin: Yes Condition: Fair Instructions: Chest Pain (ED) Referrals: PRIMARY CARE, [Primary Care Provider] - 3-5 Days Time of Disposition: 02:26 (Hospitalist paged (Dr Tillman)) }
--- NOTE | 2019-11-20 02:44 | History and Physical Report ---
{null, History of Present Illness Date of examination: 11/20/19 Date of admission: 11/20/19 Chief complaint: Chest pain x2 days History of present illness: Patient is a 59-year-old male with IDDM ,hypertension, arthritis and gastritis whom presents to ER with complaints of chest pain x2 days. Patient states the pain has been unrelieved by [id number] meds, he describes his chest pain as sharp originating in the mid sternum, and accompanied by nausea. Patient states worsening symptoms today, when the pain radiated to his left arm and he experienced numbness and tingling. He denies headaches, fever, chills or recent ill contacts. Past History Past Medical History: diabetes, hyperlipidemia, other (Herpes, arthrithis) Past Surgical History: No surgical history Social history: no significant social history Family history: no significant family history, diabetes Medications and Allergies Allergies Allergy/AdvReac Type Severity Reaction Status Date / Time No Known Allergies Allergy Verified 11/29/16 15:47 Home Medications Medication Instructions Recorded Confirmed Last Taken Type Insulin Aspart Protam & Aspart 25 unit SQ BID 03/21/16 11/20/19 Unknown History [NovoLOG Mix 70-30 Flexpen] AtorvaSTATin 20 mg PO HS 11/20/19 11/20/19 Unknown History lisinopriL [Zestril TAB] 20 mg PO HS 11/20/19 11/20/19 Unknown History metFORMIN [Glucophage] 500 mg PO BID 11/20/19 11/20/19 Unknown History Review of Systems All systems: negative Cardiovascular: chest pain Neurological: numbness (Left arm) Exam - Physical Exam Narrative exam: - Physical Exam Narrative exam: General appearance: Present: No distress noted - EENT Eyes: Present: PERRL ENT: hearing intact, clear oral mucosa - Neck Neck: Present: supple, normal ROM - Respiratory Respiratory effort: normal Respiratory: bilateral: Clear to auscultation - Cardiovascular Heart rate:64 Heart Sounds: Present: S1 & S2. Absent: rub, click - Extremities Extremities: pulses symmetrical, No edema Peripheral Pulses: within normal limits - Abdominal General gastrointestinal: Present: , non-distended, normal bowel sounds genitourinary: Present: normal - Integumentary Integumentary: Present: clear, warm, dry - Musculoskeletal Musculoskeletal: gait normal, strength equal bilaterally - Psychiatric Psychiatric: appropriate mood/affect, intact judgment & insight - Neurologic Neurologic: CNII-XII intact, moves all extremities GABE score - Gabe Score Age > 65: (0) No Aspirin use within the Past 7 Days: (0) No 3 or more CAD Risk Factors: (0) No 2 or more Angina events in past 24 hrs: (0) No Known CAD with more than 50% Stenosis: (0) No Elevated Cardiac Markers: (0) No ST Deviation Greater than 0.5mm: (0) No GABE Score: 0 Results - Labs CBC & Chem 7: 11/19/19 23:00 11/19/19 23:00 Labs: Laboratory Last Values WBC 8.9 K/mm3 (4.5-11.0) 11/19/19 23:00 RBC 4.98 M/mm3 (3.65-5.03) 11/19/19 23:00 Hgb 15.1 gm/dl (11.8-15.2) 11/19/19 23:00 Hct 43.4 % (35.5-45.6) 11/19/19 23:00 MCV 87 fl (84-94) 11/19/19 23:00 MCH 30 pg (28-32) 11/19/19 23:00 MCHC 35 % (32-34) H 11/19/19 23:00 RDW 13.8 % (13.2-15.2) 11/19/19 23:00 Plt Count 149 K/mm3 (140-440) 11/19/19 23:00 Lymph % (Auto) 16.4 % (13.4-35.0) 11/19/19 23:00 [place] % (Auto) 7.1 % (0.0-7.3) 11/19/19 23:00 Eos % (Auto) 1.7 % (0.0-4.3) 11/19/19 23:00 Baso % (Auto) 0.5 % (0.0-1.8) 11/19/19 23:00 Lymph # 1.5 K/mm3 (1.2-5.4) 11/19/19 23:00 [place] # 0.6 K/mm3 (0.0-0.8) 11/19/19 23:00 Eos # 0.2 K/mm3 (0.0-0.4) 11/19/19 23:00 Baso # 0.0 K/mm3 (0.0-0.1) 11/19/19 23:00 Seg Neutrophils % 74.3 % (40.0-70.0) H 11/19/19 23:00 Seg Neutrophils # 6.6 K/mm3 (1.8-7.7) 11/19/19 23:00 PT 12.9 Sec. (12.2-14.9) 11/19/19 23:00 INR 0.96 (0.87-1.13) 11/19/19 23:00 APTT 25.8 Sec. (24.2-36.6) 11/19/19 23:00 Sodium 143 mmol/L (137-145) 11/19/19 23:00 Potassium 4.3 mmol/L (3.6-5.0) 11/19/19 23:00 Chloride 100.6 mmol/L (98-107) 11/19/19 23:00 Carbon Dioxide 28 mmol/L (22-30) 11/19/19 23:00 Anion Gap 19 mmol/L 11/19/19 23:00 BUN 17 mg/dL (9-20) 11/19/19 23:00 Creatinine 0.8 mg/dL (0.8-1.5) 11/19/19 23:00 Estimated GFR > 60 ml/min 11/19/19 23:00 BUN/Creatinine Ratio 21 % 11/19/19 23:00 Glucose 105 mg/dL (75-100) H 11/19/19 23:00 Calcium 10.0 mg/dL (8.4-10.2) 11/19/19 23:00 Total Bilirubin 0.30 mg/dL (0.1-1.2) 11/19/19 23:00 AST 16 units/L (5-40) 11/19/19 23:00 ALT 17 units/L (7-56) 11/19/19 23:00 Alkaline Phosphatase 94 units/L (35-129) 11/19/19 23:00 Troponin T < 0.010 ng/mL (0.00-0.029) 11/20/19 01:20 Total Protein 7.1 g/dL (6.3-8.2) 11/19/19 23:00 Albumin 4.5 g/dL (3.9-5) 11/19/19 23:00 Albumin/Globulin Ratio 1.7 % 11/19/19 23:00 - Imaging and Cardiology EKG: report reviewed ( sinus rhythm) Chest x-ray: report reviewed (IMPRESSION: 1. No acute findings. ) Assessment and Plan Assessment and plan: Atypical chest pain, need to rule out ACS - will admit to telemetry bed -Troponin negative x2 - will place on Aspirin, statin - as needed SL NTG and iv morphine for pain - Monitor BP, -Cardiology consult, patient had normal stress test about 3 year ago Hypertension -Home meds once reconciled -Monitor BP q shift DM -POC BG monitoring -SSI coverage prn DVT prophylaxis -SCDs bilateral extremities -Patient ambulatory Advance Directives: No VTE prophylaxis?: Mechanical Plan of care discussed with patient/family: Yes }
[2019-11-20] MEDS ORDERED: NITROGLYCERIN 0.4 MG TAB SUBL SL PRN (02:55)
[2019-11-20] MEDS ORDERED: ACETAMINOPHEN 325 MG TAB PO PRN (02:55)
[2019-11-20] MEDS ORDERED: MORPHINE 2 MG/1 ML INJ IV PRN (02:55)
[2019-11-20] MEDS ORDERED: ONDANSETRON 4 MG/2 ML INJ IV PRN (02:55)
[2019-11-20] MEDS ORDERED: SODIUM CHLORIDE 0.9% 1000 ML 1,000 ML IV SCH (03:00)
[2019-11-20] MEDS ORDERED: DEXTROSE 50% IN WATER (25GM) 50 ML SYRINGE IV PRN (03:22)
[2019-11-20 04:36] LABS: Bilirubin,Urine NEG (Negative); Blood,Urine NEG (Negative); Color,Urine Colorless (Yellow); Protein,Urine <15 mg/dL mg/dL (Negative); Urobilinogen,Urine < 2.0 mg/dL (<2.0)
[2019-11-20] MEDS ORDERED: REGADENOSON 0.4 MG/5 ML INJ IV ONE (07:21)
[2019-11-20] MEDS: INSULIN LISPRO 100 UNIT/ML SUB-Q SCH ×2 (08:00→11:30)
[2019-11-20] MEDS ORDERED: FAMOTIDINE 20 MG/2 ML INJ IV SCH (10:00)
[2019-11-20] MEDS ORDERED: ASPIRIN EC 325 MG TAB PO SCH (10:00)
--- NOTE | 2019-11-20 10:54 | Consultation ---
{null, History of Present Illness Consult date: 11/20/19 Requesting physician: RAMIRO SEO Consult reason: chest pain History of present illness: The patient is a 59-year-old male with a past medical history of HTN, DM. He is previously unknown to our practice. He presented with c/o chest pain for the past 2-3 days. He describes his chest pain as an intermittent sharp and burning discomfort for the past several days. He denies any associated SOB, palpitations, n/v, diaphoresis, dizziness or syncope. Pt denies any known prior cardiac issues. Patient states he had a stress test 3 years ago but has never had a cardiac catheterization. Past History Past Medical History: diabetes, hyperlipidemia, other (Herpes, arthrithis) Past Surgical History: No surgical history Social history: no significant social history Family history: no significant family history, diabetes Medications and Allergies Allergies Allergy/AdvReac Type Severity Reaction Status Date / Time No Known Allergies Allergy Verified 11/29/16 15:47 Home Medications Medication Instructions Recorded Confirmed Last Taken Type Insulin Aspart Protam & Aspart 25 unit SQ BID 03/21/16 11/20/19 Unknown History [NovoLOG Mix 70-30 Flexpen] AtorvaSTATin 20 mg PO HS 11/20/19 11/20/19 Unknown History lisinopriL [Zestril TAB] 20 mg PO HS 11/20/19 11/20/19 Unknown History metFORMIN [Glucophage] 500 mg PO BID 11/20/19 11/20/19 Unknown History Active Meds: Active Medications Acetaminophen (Tylenol) 650 mg PO Q4H PRN PRN Reason: Pain MILD(1-3)/Fever >100.5/AYON Aspirin (Ecotrin) 325 mg PO QDAY SLADE Atorvastatin Calcium (Lipitor) 40 mg PO QHS SLADE Dextrose (D50w (25gm) Syringe) 50 ml IV Q30MIN PRN; Protocol PRN Reason: Hypoglycemia Famotidine (Pepcid) 20 mg IV BID SLADE Sodium Chloride (Nacl 0.9% 1000 Ml) 1,000 mls @ 125 mls/hr IV DIRECT SLADE Last Admin: 11/20/19 04:32 Dose: 125 mls/hr Documented by: Insulin Human Lispro (Humalog) 0 unit SUB-Q ACHS SLADE; Protocol Morphine Sulfate (Morphine) 2 mg IV Q4H PRN PRN Reason: Pain, Moderate (4-6) Nitroglycerin (Nitrostat) 0.4 mg SL .Q5MIN PRN PRN Reason: Chest Pain Ondansetron HCl (Zofran) 4 mg IV Q8H PRN PRN Reason: Nausea And Vomiting Review of Systems Constitutional: no weight loss, no weight gain, no fever, no chills, no sweats Ears, nose, mouth and throat: no ear pain, no nose pain, no sinus pressure, no sinus pain Cardiovascular: chest pain, no orthopnea, no palpitations, no rapid/irregular heart beat, no edema, no syncope, no lightheadedness, no shortness of breath, no dyspnea on exertion Respiratory: no cough, no shortness of breath, no dyspnea on exertion, no congestion, no wheezing, no pain on inspiration Gastrointestinal: no abdominal pain, no nausea, no vomiting, no diarrhea, no constipation, no change in bowel habits Genitourinary Male: no dysuria, no hematuria, no flank pain, no discharge, no urinary frequency, no urinary hesitancy Musculoskeletal: no neck stiffness, no neck pain, no shooting arm pain, no arm numbness/tingling, no low back pain, no shooting leg pain Integumentary: no rash, no pruritis, no redness, no sores, no wounds Neurological: no head injury, no paralysis, no weakness, no parathesias, no numbness, no tingling Psychiatric: no anxiety Endocrine: no cold intolerance, no heat intolerance Hematologic/Lymphatic: no easy bruising, no easy bleeding Allergic/Immunologic: no urticaria Physical Examination Last Vital Signs Temp 98.0 F 11/20/19 04:33 Pulse 61 11/20/19 04:33 Resp 18 11/20/19 04:33 BP 136/78 11/20/19 04:33 Pulse Ox 96 11/20/19 04:33 General appearance: no acute distress HEENT: Positive: PERRL, Normocephaly, Mucus Membranes Moist Neck: Positive: neck supple, trachea midline Cardiac: Positive: Reg Rate and Rhythm, S1/S2 Lungs: Positive: Decreased Breath Sounds Neuro: Positive: Grossly Intact Abdomen: Negative: Tender Skin: Negative: Rash Musculoskeletal: No Pain Extremities: Absent: edema Results 11/19/19 23:00 11/19/19 23:00 Cardiac Enzymes 11/19/19 Range/Units 23:00 AST 16 (5-40) units/L Coagulation 11/19/19 Range/Units 23:00 PT 12.9 (12.2-14.9) Sec. INR 0.96 (0.87-1.13) APTT 25.8 (24.2-36.6) Sec. CBC 11/19/19 Range/Units 23:00 WBC 8.9 (4.5-11.0) K/mm3 RBC 4.98 (3.65-5.03) M/mm3 Hgb 15.1 (11.8-15.2) gm/dl Hct 43.4 (35.5-45.6) % Plt Count 149 (140-440) K/mm3 Lymph # 1.5 (1.2-5.4) K/mm3 [place] # 0.6 (0.0-0.8) K/mm3 Eos # 0.2 (0.0-0.4) K/mm3 Baso # 0.0 (0.0-0.1) K/mm3 Comprehensive Metabolic Panel 11/19/19 Range/Units 23:00 Sodium 143 (137-145) mmol/L Potassium 4.3 (3.6-5.0) mmol/L Chloride 100.6 (98-107) mmol/L Carbon Dioxide 28 (22-30) mmol/L BUN 17 (9-20) mg/dL Creatinine 0.8 (0.8-1.5) mg/dL Glucose 105 H (75-100) mg/dL Calcium 10.0 (8.4-10.2) mg/dL AST 16 (5-40) units/L ALT 17 (7-56) units/L Alkaline Phosphatase 94 (35-129) units/L Total Protein 7.1 (6.3-8.2) g/dL Albumin 4.5 (3.9-5) g/dL - Imaging and Cardiology EKG: report reviewed, image reviewed EKG interpretations - Telemetry EKG Rhythm: Sinus Rhythm - EKG Sinus rhythms and dysrhythmias: sinus rhythm Assessment and Plan Chest pain currently resolved. AMI r/o. S/p treadmill MPI stress test this AM - pt walked 10 minutes on treadmill without any chest pain, good exercise tolerance, MPI images negative for ischemia. Currently stable cardiac status. Pt may discharge from cardiology standpoint. Recommend pt follow up in our office with Dr. Oh within 1-2 weeks of discharge ([phone]). The patient has been seen in conjunction with Dr. Oh who agrees with the assessment and plan of care. - Patient Problems (1) Chest pain Current Visit: Yes Status: Resolved (2) HTN (hypertension) Current Visit: Yes Status: Chronic (3) Diabetes Current Visit: Yes Status: Chronic }
--- NOTE | 2019-11-20 11:08 | Treadmill Report ---
{null, NUCLEAR CARDIAC TREADMILL STRESS TEST INDICATION FOR PROCEDURE: Chest pain. Informed consent was obtained. The baseline electrocardiogram demonstrates normal sinus rhythm and is within normal limits. The patient exercised according to the Aryan protocol for 10 minutes reaching a peak heart rate of 170 beats per minute and a maximum blood pressure of 162/89. The resting heart rate was 65 with a resting blood pressure 127/76. Exercise was limited by fatigue. The patient achieved 106% of the maximum predicted heart rate response and attained a workload of 10.9 mets. The electrocardiographic response demonstrates no ischemic ST segment abnormalities either during exercise or in the recovery phase. There was no significant ectopy. There was no chest pain. Exercise was limited by fatigue. Rest and stress nuclear cardiac imaging were performed following the intravenous administration of technetium-99m Myoview. Gated SPECT imaging demonstrates a left ventricular ejection fraction of 66% with normal wall motion. Myocardial perfusion imaging demonstrates no significant cavity change between stress and rest. No significant stress induced perfusion defects are seen. The treadmill stress test is clinically and electrocardiographically nonischemic. The patient exhibited normal exercise tolerance. Nuclear cardiac imaging demonstrates grossly normal post-stress left ventricular systolic function with no significant evidence of myocardial ischemia or necrosis. JOB# [id number] MARK/NTS }
[2019-11-20] MEDS ORDERED: FLU VACC QUAD 2019-20 (3 YR UP)/PF 60 MCG/0.5 ML SYRINGE IM ONE (12:00)
--- NOTE | 2019-11-20 13:17 | Discharge Summary ---
{null, Providers - Providers Date of Admission: 11/20/19 02:36 Date of discharge: 11/20/19 Attending physician: SYED BROOKS 11/20/19 03:19 Consult to Physician [CONS] Routine Comment: Consulting Provider: EMILY LUNDBERG Physician Instructions: Reason For Exam: chest pain Primary care physician: [employer] Hospitalization Condition: Fair Hospital course: Discharge diagnosis: Atypical chest pain, ruled out ACS, likely from GERD -Troponin negative x2 -Cardiology consulted, patient had normal stress test and normal 2d echo Hypertension -Home meds once reconciled -Monitor BP q shift DM -POC BG monitoring -SSI coverage prn DVT prophylaxis -SCDs bilateral extremities -Patient ambulatory Disposition: - TO HOME OR SELFCARE Time spent for discharge: 34 minutes Core Measure Documentation - Palliative Care Palliative Care/ Comfort Measures: Not Applicable - Core Measures Any of the following diagnoses?: none Exam - Constitutional Vitals: Temp Pulse Resp BP Pulse Ox 98.0 F 61 18 119/79 96 11/20/19 04:33 11/20/19 04:33 11/20/19 04:33 11/20/19 08:44 11/20/19 04:33 Plan Activity: advance as tolerated Weight Bearing Status: Weight Bear as Tolerated Diet: low fat, low salt Follow up with: PRIMARY CARE, [Primary Care Provider] - 3-5 Days Prescriptions: Pantoprazole [Protonix] 40 mg PO BID #60 tablet }
[2019-11-20 15:04] VITALS: BP 118/74
== END 2019-11-20 15:00 | disposition home or self-care (01) ==
LOC: ED 21:37 → 4A 11-20 02:36
PROVIDERS: ADMIT Internal Medicine Geriatric Medicine; ATTEND Internal Medicine
DX: R07.89 Other chest pain (principal); I10 Essential (primary) hypertension; E11.9 Type 2 diabetes mellitus without complications; E78.5 Hyperlipidemia, unspecified; M19.90 Unspecified osteoarthritis, unspecified site; Z79.4 Long term (current) use of insulin; Z87.891 Personal history of nicotine dependence
CPT/HCPCS: 36415; 71046; 78452; 80053; 81001; 84484; 85025; 85610; 85730; 90686; 93005; 93010; 93017; 93306; 96374; 96376; 99285; A9502; G0378; J2785; J7030

== ENCOUNTER 2020-07-11 19:45 | Emergency (ER) | payer OTHER ==
[2020-07-11 22:01] VITALS: BP 126/72
[2020-07-11 23:25] LABS: Bilirubin,Urine NEG (Negative); Blood,Urine NEG (Negative); Color,Urine Yellow (Yellow); Urobilinogen,Urine < 2.0 mg/dL (<2.0)
== END 2020-07-11 22:00 | disposition left against medical advice (07) ==
LOC: ED 19:45
DX: R50.9 Fever, unspecified (principal); R10.9 Unspecified abdominal pain; R11.2 Nausea with vomiting, unspecified; Z53.21 Procedure and treatment not carried out due to patient leaving prior to being seen by health care provider
CPT/HCPCS: 81001

== ENCOUNTER 2020-07-12 10:14 | Emergency (ER) | payer SELFPAY ==
[2020-07-12 10:33] VITALS: BP 129/91
[2020-07-12 19:12] LABS: Bacteria,Urine 1+ /HPF (Negative); Bilirubin,Urine NEG (Negative); Blood,Urine NEG (Negative); Color,Urine Straw (Yellow); Mucus,Urine FEW /HPF; Urobilinogen,Urine < 2.0 mg/dL (<2.0); WBC,Urine < 1.0 /HPF (0.0-6.0)
== END 2020-07-12 11:33 | disposition left against medical advice (07) ==
LOC: ED 10:14
DX: R11.0 Nausea (principal); Z53.21 Procedure and treatment not carried out due to patient leaving prior to being seen by health care provider
CPT/HCPCS: 81001; 87086

== ENCOUNTER 2021-07-28 07:06 | Outpatient (CLI) | payer BC ==
[2021-07-28 07:39] LABS: Basophils % (Auto) 0.9 % (0.0-1.8); Eosinophils # (Auto) 0.2 K/mm3 (0.0-0.4); Eosinophils % (Auto) 4.6 % (0.0-4.3); Hematocrit 42.6 % (35.5-45.6); Hemoglobin 14.2 gm/dl (11.8-15.2); Lymphocytes # (Auto) 1.3 K/mm3 (1.2-5.4); Lymphocytes % (Auto) 26.8 % (13.4-35.0); Mean Corpuscular HGB Conc 33 % (32-34); Mean Corpuscular Volume 87 fl (84-94); Monocytes # (Auto) 0.3 K/mm3 (0.0-0.8); Platelet Count 153 K/mm3 (140-440); Red Blood Count 4.88 M/mm3 (3.65-5.03); Red Cell Distribution Width 13.7 % (13.2-15.2)
[2021-07-28 08:01] LABS: Alanine Aminotransferase 15 units/L (7-56); Albumin 4.1 g/dL (3.9-5); Blood Urea Nitrogen 11 mg/dL (9-20); Chol/HDL Ratio 4.97 %; HDL Cholesterol 41 mg/dL (40-59); Hemolysis Index 8; LDL Cholesterol,Direct 151 mg/dL (50-130)
[2021-07-28 08:02] LABS: BUN/Creatinine Ratio 18
== END 2021-07-28 07:07 | disposition home or self-care (01) ==
LOC: LAB 07:06
PROVIDERS: ATTEND Internal Medicine
DX: Z13.29 Encounter for screening for other suspected endocrine disorder (principal); Z00.00 Encounter for general adult medical examination without abnormal findings; E11.65 Type 2 diabetes mellitus with hyperglycemia; R39.11 Hesitancy of micturition; E78.5 Hyperlipidemia, unspecified; E55.9 Vitamin D deficiency, unspecified
CPT/HCPCS: 36415; 80053; 80061; 82306; 83036; 84153; 84443; 85025

== ENCOUNTER 2022-05-10 08:00 | Outpatient (CLI) | payer BC ==
--- NOTE | 2022-05-10 09:14 | XRay Report ---
BILATERAL HIP 2 VIEW(S) INDICATION / CLINICAL INFORMATION: RIGHT HIP PAIN. COMPARISON: CT of the abdomen pelvis dated 07/17/2019 FINDINGS: BONES / JOINT(S): No acute fracture or subluxation. 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 There is moderate degeneration of the left hip. SOFT TISSUES: No significant abnormality. ADDITIONAL FINDINGS: None. Signer Name: Cb Martinez DO Signed: 05/10/2022 9:09 AM Workstation Name: [id number]
== END 2022-05-10 08:01 | disposition home or self-care (01) ==
LOC: XRAY 08:00
PROVIDERS: ATTEND Orthopaedic Surgery
DX: M16.0 Bilateral primary osteoarthritis of hip (principal)
CPT/HCPCS: 73521

== ENCOUNTER 2022-06-09 05:43 | Inpatient (IN) | payer BC ==
[2022-06-01 10:12] LABS: Hematocrit 42.9 % (35.5-45.6); Hemoglobin 14.6 gm/dl (11.8-15.2); Mean Corpuscular HGB Conc 34 % (32-34); Mean Corpuscular Volume 87 fl (84-94); Platelet Count 151 K/mm3 (140-440); Red Blood Count 4.95 M/mm3 (3.65-5.03); Red Cell Distribution Width 14.4 % (13.2-15.2)
[2022-06-01 10:32] LABS: Blood Urea Nitrogen 16 mg/dL (9-20); Calcium 9.2 mg/dL (8.4-10.2); Hemolysis Index 7
[2022-06-01 10:38] LABS: BUN/Creatinine Ratio 23
--- NOTE | 2022-06-01 11:40 | Anesthesia Consultation ---
Anesthesia Consult and Med Hx Date of service: 06/01/22 - Airway Anesthetic Teeth Evaluation: Good (implants), Partials ROM Head & Neck: Adequate Mental/Hyoid Distance: Adequate Mallampati Class: Class II Intubation Access Assessment: Probably Good - Pulmonary Exam CTA: Yes - Cardiac Exam Cardiac Exam: RRR - Pre-Operative Health Status ASA Pre-Surgery Classification: ASA2 Proposed Anesthetic Plan: General Nerve Block: ESTRELLA block - Pulmonary Hx Smoking: Yes (former smoker quit 20yrs) Hx Respiratory Symptoms: No - Cardiovascular System Hx Hypertension: Yes Hx Heart Attack/AMI: No - Central Nervous System CVA: No Hx Psychiatric Problems: Yes (anxiety/depression) - Endocrine Hx Renal Disease: No Hx Liver Disease: No Hx Insulin Dependent Diabetes: Yes Hx Thyroid Disease: No - Other Systems Hx Obesity: No - Additional Comments Anesthesia Medical History Comments: No prior GA. Last dose ASA 1wk ago. Had COVID PNA in 2020 with hospitalization (no mechanical ventilation) and was d/c'd with prn home O2 which he has never needed. Feels respiratory status has returned to normal in the interim.
[2022-06-09] MEDS ORDERED: CELECOXIB 200 MG CAP PO NR (06:00)
[2022-06-09] MEDS ORDERED: ACETAMINOPHEN 325 MG TAB PO SCH (06:00)
[2022-06-09] MEDS ORDERED: GABAPENTIN 300 MG CAP PO NR (06:00)
[2022-06-09] MEDS ORDERED: LACTATED RINGERS 1,000 ML IV SCH (06:00)
[2022-06-09] MEDS ORDERED: MIDAZOLAM 2 MG/2 ML INJ IV NR (06:00)
[2022-06-09] MEDS ORDERED: FAMOTIDINE 20 MG/2 ML INJ IV NR (07:00)
[2022-06-09] MEDS ORDERED: VANCOMYCIN/NS 1 GM/250 ML 1 GM/250 ML BAG IV NR (07:00)
[2022-06-09] MEDS ORDERED: LIDOCAINE MPF (2%) 20 MG/1 ML VIAL 5 ML ONE (07:03)
[2022-06-09] MEDS ORDERED: propofoL 200 MG/20 ML VIAL IV ONE (07:03)
[2022-06-09] MEDS ORDERED: KETAMINE/STERILE WATER 50 MG/ML SYRINGE ONE (07:04)
[2022-06-09] MEDS ORDERED: dexAMETHasone 4 MG/ML VIAL ONE (07:18)
[2022-06-09] MEDS ORDERED: BUPIVACAINE-EPINEPHRINE/PF 0.25%-1:200,000 (30 ML) VIAL INFILTRATI ONE (07:18)
[2022-06-09] MEDS ORDERED: SODIUM CHLORIDE 0.9% 50 ML ONE (07:24)
[2022-06-09] MEDS ORDERED: TRANEXAMIC ACID 1,000 MG/10 ML ONE (07:24)
[2022-06-09] MEDS ORDERED: KETOROLAC 30 MG/1 ML INJ ONE (07:24)
[2022-06-09] MEDS ORDERED: MORPHINE 10 MG/1 ML INJ ONE (07:24)
[2022-06-09] MEDS ORDERED: BUPIVACAINE/PF (0.5%) 5 MG/1 ML 10 ML VIAL INFILTRATI ONE ×2 (07:24→09:37)
[2022-06-09] MEDS ORDERED: SODIUM CHLORIDE 0.9% 100 ML ONE (07:25)
[2022-06-09] MEDS: fentaNYL 100 MCG/2 ML INJ IV PRN ×2 (07:29→07:38)
--- NOTE | 2022-06-09 07:59 | Anesthesia Day of Surgery ---
Anesthesia Day of Surgery - Day of Surgery Patient Examined: Yes Patient H&P Reviewed: Yes Patient is NPO: Yes
[2022-06-09] MEDS ORDERED: ANTICOAGULANT SOD CITRATE SOLUTION MC ONE (08:03)
[2022-06-09] MEDS ORDERED: ROCURONIUM 50 MG/5 ML INJ IV ONE (08:12)
[2022-06-09] MEDS ORDERED: SUCCINYLCHOLINE CHLORIDE 200 MG/10 ML INJ MDV ONE (08:12)
[2022-06-09] MEDS ORDERED: fentaNYL 100 MCG/2 ML INJ ONE (08:14)
[2022-06-09] MEDS ORDERED: HYDROmorphone 0.5 MG/0.5 ML INJ IV PRN ×2 (08:30)
[2022-06-09] MEDS ORDERED: ONDANSETRON 4 MG/2 ML INJ IV PRN ×2 (08:30→08:56)
[2022-06-09] MEDS ORDERED: MORPHINE 4 MG/1 ML INJ IV PRN (08:56)
[2022-06-09] MEDS ORDERED: ePHEDrine SULFATE 50 MG/1 ML INJ ONE (08:59)
[2022-06-09] MEDS ORDERED: HYDROmorphone 0.5 MG/0.5 ML INJ ONE (09:15)
[2022-06-09] MEDS ORDERED: KETOROLAC 30 MG/1 ML INJ IV ONE (09:37)
[2022-06-09] MEDS ORDERED: MORPHINE 10 MG/1 ML INJ IV ONE (09:37)
[2022-06-09] MEDS ORDERED: TRANEXAMIC ACID 1,000 MG/10 ML IV ONE (09:37)
[2022-06-09] MEDS ORDERED: SODIUM CHLORIDE 0.9% 100 ML IVPB IV ONE (09:37)
[2022-06-09] MEDS ORDERED: SODIUM CHLORIDE 0.9% 50 ML IVPB IV ONE (09:37)
[2022-06-09] MEDS ORDERED: SODIUM CHLORIDE 0.9% IRR 1,500 ML BOTTLE IR ONE (09:37)
[2022-06-09] MEDS ORDERED: SODIUM CHLORIDE 0.9% IRRIG SOLN 3000 ML IR ONE (09:37)
[2022-06-09] MEDS ORDERED: SUGAMMADEX SODIUM 200 MG/2 ML VIAL IV ONE (09:48)
[2022-06-09] MEDS ORDERED: NEOSTIGMINE 10MG/10 ML INJ MDV ONE (10:01)
[2022-06-09] MEDS ORDERED: GLYCOPYRROLATE 0.4 MG/2 ML INJ ONE (10:01)
--- NOTE | 2022-06-09 10:23 | Procedure Note ---
Date of procedure: 06/09/22 Pre-op diagnosis: Severe arthritis right hip Post-op diagnosis: same Procedure: Right total hip replacement Procedure The patient was brought to the OR and placed in the OR table in the supine position following induction intubation by anesthesia the patient's was turned into the left lateral decubitus position care was taken to protect the bony areas and a axillary roll was used and the left axilla. Right hip and thigh were then prepped and draped in the usual sterile manner. A timeout procedure was done to identify the patient and the correct operative site. Using the lateral approach incision was taken down through skin and subcutaneous the f ascia nicole was incised A Charnley retractor was placed deep within the wound care was taken to enter the anterior hip capsule by the vastus lateralis and the gluteus medius tendons in the knee was flexed and internally rotated which brought us upon the anterior portion of the hip joint using a small broach and osteotomy was performed on the femoral neck approximately 2 cm to centimeters proximal to the lesser trochanter. Using Lopez retractors the the acetabular structures were evaluated the patient was noted to have some moderate changes within the acetabulum reaming was begun starting with a 45 mm diameter and advancing up to a 52 mm cup was taken to the observed bleeding bone within the acetabulum nicely 52 mm cup was inserted care was taken to maintain the proper version that being 45 abduction and 20 of anteversion and a small screw was used to stabilize this acetabular component next attention was turned to the proximal femur using a cookie cutter and the proximal femoral canal was entered this was then reamed and broached to a #4 stem And the hip joint was then reduced using a 30 neutral neck and a 32 mm head hip was reduced taken through a range of motion and was found to be stable Trial component was removed and the hip joint was then copiously irrigated the final components were inserted that being a #4 femoral stem with a 32 mm head again the hip joint was reduced and was taken through a range of motion and found stable. He was closed in a standard routine fashion. Dressings were applied the patient tolerated the procedure and there were no complications he was taken to postanesthesia recovery stable Anesthesia: MAC, regional Surgeon: DAWIT HARGROVE (Earl Lisa, 1st assist) Estimated blood loss: other (200cc) Pathology: list (portions of right femoral head and neck) Specimen disposition: to lab Condition: stable Disposition: PACU
--- NOTE | 2022-06-09 11:13 | Post Anesthesia Evaluation ---
- Post Anesthesia Evaluation Patient Participated: Yes Airway Patent: Yes Stable Respiratory Function: Yes Nausea/Vomiting: No Temp > 96.8F: Yes Pain Manageable: Yes Adequeate Hydration: Yes Anesthesia Complications: No Block Receding Appropriately: Not Applicable Patient on Ventilator: No
[2022-06-09] MEDS ORDERED: INSULIN LISPRO 100 UNIT/ML SUB-Q PRN (11:30)
[2022-06-09] MEDS: KETOROLAC 30 MG/1 ML INJ IV PRN ×2 (13:00→18:57)
[2022-06-09] MEDS: ceFAZolin/NS 1 GM/50 ML 1 GM/50 ML BAG IV SCH ×2 (13:06→22:43)
--- NOTE | 2022-06-09 16:10 | XRay Report ---
RIGHT HIP ONE VIEW INDICATION: Postop evaluation. COMPARISON: 05/10/2022 IMPRESSION: Recent right hip arthroplasty changes are evident. The hardware is well applied with an atomic alignment at the joint space. Satisfactory postoperative hip. Signer Name: Marcellus Trujillo Jr, MD Signed: 06/09/2022 4:06 PM Workstation Name: [id number]
[2022-06-09] MEDS: IBUPROFEN 600 MG TAB PO PRN (18:25)
[2022-06-10] MEDS: IBUPROFEN 600 MG TAB PO PRN ×3 (02:50→18:31)
[2022-06-10] MEDS: KETOROLAC 30 MG/1 ML INJ IV PRN ×2 (04:39→22:29)
[2022-06-10 05:29] LABS: Hemoglobin 11.7 gm/dl (11.8-15.2)
[2022-06-10] MEDS: ENOXAPARIN 40 MG/0.4 ML INJ SUB-Q SCH (09:20)
[2022-06-10] MEDS: MORPHINE 2 MG/1 ML INJ IV PRN (10:39)
--- NOTE | 2022-06-10 14:27 | Progress Note ---
Assessment and Plan s/p right THR doing ok continue PT and observation... Subjective Date of service: 06/10/22 Interval history: c/o anterior thigh pain, otherwise ok, PT started... Objective Vital signs: Vital Signs - 12hr 06/10/22 06/10/22 06/10/22 04:50 10:34 10:38 Temperature 98.0 F Pulse Rate 102 H Respiratory 18 20 Rate Blood Pressure 135/87 O2 Sat by Pulse 93 96 Oximetry 06/10/22 06/10/22 10:39 11:42 Temperature 98.5 F Pulse Rate 110 H Respiratory 20 18 Rate Blood Pressure 110/73 O2 Sat by Pulse 94 Oximetry Incision: clean and dry Weight bearing status: as tolerated - Labs CBC & BMP: 06/10/22 05:12 06/01/22 Unknown Labs: Abnormal lab results 06/10/22 Range/Units 05:12 Hgb 11.7 L (11.8-15.2) gm/dl Hct 35.0 L (35.5-45.6) %
[2022-06-11] MEDS: MORPHINE 2 MG/1 ML INJ IV PRN ×2 (08:58→16:44)
[2022-06-11] MEDS: ENOXAPARIN 40 MG/0.4 ML INJ SUB-Q SCH (08:59)
[2022-06-11] MEDS: IBUPROFEN 600 MG TAB PO PRN ×2 (11:53→22:04)
[2022-06-12] MEDS: MORPHINE 2 MG/1 ML INJ IV PRN (09:01)
[2022-06-12] MEDS: ENOXAPARIN 40 MG/0.4 ML INJ SUB-Q SCH (09:02)
[2022-06-12 12:12] VITALS: BP 144/92
--- NOTE | 2022-06-12 12:40 | Discharge Summary ---
Providers - Providers Date of Admission: 06/09/22 05:43 Date of discharge: 06/12/22 Attending physician: DAWIT HARGROVE MD 06/09/22 08:57 Consult to Case Management [CONS] Routine Services Needed at Discharge: Other Notified:: yes Additional Physician Instructions: Assess Discharge needs. Physical Therapy Evaluation and Treat [CONS] Routine Comment: Reason For Exam: Eval and Treat 06/09/22 14:53 Occupational Therapy Evaluate and Treat [CONS] Routine Comment: Reason For Exam: eval and treat Primary care physician: ANTONIA DAMON Exam - Constitutional Vitals: Temp Pulse Resp BP Pulse Ox 99 F 96 H 18 144/92 97 06/12/22 12:00 06/12/22 12:00 06/12/22 12:00 06/12/22 12:00 06/12/22 12:36 Plan Follow up with: ANTONIA DAMON MD [Primary Care Provider] - 7 Days Prescriptions: Apixaban [Eliquis] 5 mg PO DAILY #30 Oxycodone HCl/Acetaminophen [Percocet 10/325 mg] 1 each PO Q6HR PRN #30 PRN Reason: Pain
[2022-06-12] MEDS: IBUPROFEN 600 MG TAB PO PRN (13:17)
== END 2022-06-12 16:30 | disposition home health service (06) | DRG 470 ==
LOC: 3A 05:43
PROVIDERS: ADMIT Orthopaedic Surgery; ATTEND Orthopaedic Surgery
PROC: 0SR90JZ Replacement of Right Hip Joint with Synthetic Substitute, Open Approach (ICD-10-PCS; principal; 2022-06-09)
DX: M16.11 Unilateral primary osteoarthritis, right hip (principal); Z20.822 Contact with and (suspected) exposure to COVID-19; I10 Essential (primary) hypertension; E11.9 Type 2 diabetes mellitus without complications; F41.9 Anxiety disorder, unspecified; F32.A Depression, unspecified; Z87.891 Personal history of nicotine dependence; Z88.0 Allergy status to penicillin; Z79.4 Long term (current) use of insulin
CPT/HCPCS: 36415; 64450; 80048; 82962; 85014; 85018; 85027; 86850; 86900; 86901; 88304; 88311; G0378; J1815; J3490; J7121; Q9967; C1776; J0330; J0690; J1100; J1170; J1650; J1885; J2250; J2270; J2704; J2710; J3010; J3370; J7120; U0003